=== PATIENT | male | born 1935 | race Caucasian/White ===

== ENCOUNTER 2018-06-26 21:39 | Emergency (ER) | payer OTHER ==
[2018-06-26] MEDS ORDERED: NS 1,000 ML IV ONE (22:18)
[2018-06-26] MEDS ORDERED: ONDANSETRON 4 MG/2 ML VIAL IVP ONE (22:18)
[2018-06-26] MEDS ORDERED: fentaNYL 100 MCG/2 ML INJ IVP ONE (22:18)
[2018-06-26] MEDS ORDERED: FAMOTIDINE 20 MG/NACL 50 ML IV ONE (22:18)
--- NOTE | 2018-06-26 22:23 | EDPHY ---
H & P Stated Complaint: EPIGASTRIC PAIN W/ NAUSEA Time Seen by Provider: 06/26/18 22:02 HPI/ROS: HPI The patient presents with epigastric abdominal pain which has been present for the last several hours which started slowly and has gotten progressively worse. The patient describes it as gas pains. It does not radiate. He was at a play this evening and had to leave because the pain was so severe. It is associated with nausea without any vomiting. The patient says over the last 1 week he has been feeling more run down than usual. He went skiing but tired quickly and normally would not do this. About 3 weeks ago he had an episode of hypotension at rest with a blood pressure of 90/50. He sought care from his primary care doctor and had a battery of lab tests run which he all reports were normal. He had a treadmill stress test performed as well which was negative according to him. He 20 years ago has a history of a gastric ulcer which was treated with medication including antibiotics, he did require blood transfusion at the time. He has had no further episodes and has been on omeprazole for this. His bowel movements are normal he says without any dark or bloody stools. He has not had a fever.. REVIEW OF SYSTEMS 10 systems were reviewed and negative with the exception of the elements mentioned in the history of present illness. PMHx: History of peptic ulcer disease as above, had a normal endoscopy about 5 years ago, hypertension, takes a baby aspirin daily Soc Hx: Here with his , lives independently in [place], likes to ski PHYSICAL General Appearance: Alert, no distress Eyes: Pupils equal and round no pallor or injection ENT, Mouth: Mucous membranes moist Respiratory: There are no retractions, lungs are clear to auscultation Cardiovascular: Regular rate and rhythm Gastrointestinal: Abdomen is moderately distended, most prominently tender in the epigastrium though there is diffuse mild tenderness in all quadrants, bowel sounds present Neurological: A&O, moves all extremities Skin: Warm and dry, no rashes Musculoskeletal: Neck is supple non tender Extremities: symmetrical, full range of motion Psychiatric: Patient is oriented X 3, there is no agitation Source: Patient, Family Exam Limitations: No limitations - Personal History Current Tetanus Diphtheria and Acellular Pertussis (TDAP): Yes - Medical/Surgical History Other PMH: HTN, BLEEDING ULCER, SD - Social History Smoking Status: Never smoked Constitutional: Initial Vital Signs Temperature (C) 36.5 C 06/26/18 21:45 Heart Rate 54 L 06/26/18 21:45 Respiratory Rate 16 06/26/18 21:45 Blood Pressure 198/76 H 06/26/18 21:45 O2 Sat (%) 96 06/26/18 21:45 O2 Delivery Mode Room Air Allergies/Adverse Reactions: No Known Allergies Allergy (Unverified 11/18/11 14:36) Home Medications: Medication Instructions Recorded Aspirin 06/26/18 Losartan Potassium 06/26/18 Prilosec 06/26/18 amLODIPine BESYLATE 06/26/18 Medical Decision Making - Diagnostics Imaging Results: CT abdomen pelvis with IV contrast demonstrates possible micro nodular contour of the liver, enlarged prostate, moderate volume of retained stool, interpreted by direct radiology Differential Diagnosis: 82-year-old relatively healthy man with history of peptic ulcer disease now on omeprazole presents with his for epigastric abdominal pain associated with nausea tonight. He has been feeling unwell for the last 1 month with no clear diagnosis. Here, he is hypertensive, other vital signs are normal. His abdomen is quite distended with epigastric tenderness. Differential diagnosis includes dyspepsia from peptic ulcer disease, perforated viscus, cecal volvulus, bowel obstruction. Patient is given IV fluids and fentanyl 25 mcg. He felt much better after this. Labs were checked and were unremarkable. CT scan showed moderate stool, however no other acute findings to explain his symptoms. He could very well be suffering from constipation leading to abdominal distension and epigastric pain. I have discussed this with him. I have explained also that there is some uncertainty as constipation may not be the cause of his symptoms, however we have ruled out several emergent conditions. I have offered him admission to the hospital as verses discharge to home with laxatives and primary care follow-up. He prefers to go home. I will discharge him with magnesium citrate and instructions for MiraLax. - Data Points Laboratory Results: Laboratory Results 06/26/18 22:08 06/27/18 06/26/18 06/26/18 00:20 22:51 22:45 WBC RBC Hgb POC Hgb 14.6 gm/dL gm/dL (13.7-17.5) Hct POC Hct 43 % % (40-51) MCV MCH MCHC RDW Plt Count MPV Neut % (Auto) Lymph % (Auto) [place] % (Auto) Eos % (Auto) Baso % (Auto) Nucleat RBC Rel Count Absolute Neuts (auto) Absolute Lymphs (auto) Absolute Monos (auto) Absolute Eos (auto) Absolute Basos (auto) Absolute Nucleated RBC Immature Gran % Immature Gran # VBG Lactic Acid 0.9 mmol/L mmol/L (0.7-2.1) POC Sodium 144 mEq/L mEq/L (135-145) POC Potassium 4.1 mEq/L mEq/L (3.3-5.0) POC Chloride 104 mEq/L mEq/L (97-110) POC Total CO2 26 mEq/L mEq/L (22-31) POC BUN 20 mg/dL mg/dL (7-23) POC Creatinine 0.9 mg/dL mg/dL (0.7-1.3) POC Glucose 108 mg/dL H mg/dL (70-100) Total Bilirubin Conjugated Bilirubin Unconjugated Bilirubin AST ALT Alkaline Phosphatase Total Protein Albumin Lipase Urine Color YELLOW Urine Appearance CLEAR Urine pH 6.0 (5.0-7.5) Ur Specific [place] 1.019 (1.002-1.030) Urine Protein NEGATIVE (NEGATIVE) Urine Ketones NEGATIVE (NEGATIVE) Urine Blood NEGATIVE (NEGATIVE) Urine Nitrate NEGATIVE (NEGATIVE) Urine Bilirubin NEGATIVE (NEGATIVE) Urine Urobilinogen NEGATIVE EU EU (0.2-1.0) Ur Leukocyte Esterase NEGATIVE (NEGATIVE) Urine Glucose NEGATIVE (NEGATIVE) 06/26/18 06/26/18 22:08 22:08 WBC 10.54 10^3/uL H 10^3/uL (3.80-9.50) RBC 4.79 10^6/uL 10^6/uL (4.40-6.38) Hgb 15.5 g/dL g/dL (13.7-17.5) POC Hgb Hct 46.7 % % (40.0-51.0) POC Hct MCV 97.5 fL fL (81.5-99.8) MCH 32.4 pg pg (27.9-34.1) MCHC 33.2 g/dL g/dL (32.4-36.7) RDW 13.7 % % (11.5-15.2) Plt Count 240 10^3/uL 10^3/uL (150-400) MPV 10.8 fL fL (8.7-11.7) Neut % (Auto) 74.2 % % (39.3-74.2) Lymph % (Auto) 17.0 % % (15.0-45.0) [place] % (Auto) 7.2 % % (4.5-13.0) Eos % (Auto) 0.9 % % (0.6-7.6) Baso % (Auto) 0.4 % % (0.3-1.7) Nucleat RBC Rel Count 0.0 % % (0.0-0.2) Absolute Neuts (auto) 7.82 10^3/uL H 10^3/uL (1.70-6.50) Absolute Lymphs (auto) 1.79 10^3/uL 10^3/uL (1.00-3.00) Absolute Monos (auto) 0.76 10^3/uL 10^3/uL (0.30-0.80) Absolute Eos (auto) 0.10 10^3/uL 10^3/uL (0.03-0.40) Absolute Basos (auto) 0.04 10^3/uL 10^3/uL (0.02-0.10) Absolute Nucleated RBC 0.00 10^3/uL 10^3/uL (0-0.01) Immature Gran % 0.3 % % (0.0-1.1) Immature Gran # 0.03 10^3/uL 10^3/uL (0.00-0.10) VBG Lactic Acid POC Sodium POC Potassium POC Chloride POC Total CO2 POC BUN POC Creatinine POC Glucose Total Bilirubin 0.4 mg/dL mg/dL (0.1-1.4) Conjugated Bilirubin 0.2 mg/dL mg/dL (0.0-0.5) Unconjugated Bilirubin 0.2 mg/dL mg/dL (0.0-1.1) AST 30 IU/L IU/L (17-59) ALT 35 IU/L IU/L (21-72) Alkaline Phosphatase 117 IU/L IU/L (38-126) Total Protein 7.5 g/dL g/dL (6.3-8.2) Albumin 4.6 g/dL g/dL (3.5-5.0) Lipase 126 IU/L IU/L (23-300) Urine Color Urine Appearance Urine pH Ur Specific [place] Urine Protein Urine Ketones Urine Blood Urine Nitrate Urine Bilirubin Urine Urobilinogen Ur Leukocyte Esterase Urine Glucose Medications Given: Discontinued Medications Fentanyl (Sublimaze) 25 mcg IVP EDNOW ONE Stop: 06/26/18 22:19 Last Admin: 06/26/18 22:30 Dose: 25 mcg Sodium Chloride (Ns) 1,000 mls @ 0 mls/hr IV EDNOW ONE; Wide Open PRN Reason: Protocol Stop: 06/26/18 22:19 Last Admin: 06/26/18 22:30 Dose: 1,000 mls Famotidine/Sodium Chloride (Pepcid 20 Mg (Premix)) 50 mls @ 200 mls/hr IV EDNOW ONE Stop: 06/26/18 22:32 Last Admin: 06/26/18 22:30 Dose: 50 mls Magnesium Citrate (Magnesium Citrate) 300 ml PO ONCE ONE Stop: 06/27/18 01:02 Last Admin: 06/27/18 01:25 Dose: 1 btl Ondansetron HCl (Zofran) 4 mg IVP EDNOW ONE Stop: 06/26/18 22:19 Last Admin: 06/26/18 22:30 Dose: 4 mg Point of Care Test Results: Chemistry 06/26/18 22:51 POC Sodium 144 mEq/L mEq/L (135-145) POC Potassium 4.1 mEq/L mEq/L (3.3-5.0) POC Chloride 104 mEq/L mEq/L (97-110) POC Total CO2 26 mEq/L mEq/L (22-31) POC BUN 20 mg/dL mg/dL (7-23) POC Creatinine 0.9 mg/dL mg/dL (0.7-1.3) POC Glucose 108 mg/dL H mg/dL (70-100) ISTAT H&H 06/26/18 22:51 POC Hgb 14.6 gm/dL gm/dL (13.7-17.5) POC Hct 43 % % (40-51) Departure - Departure Disposition: Home, Routine, Self-Care Clinical Impression: Epigastric abdominal pain Constipation Qualifiers: Constipation type: unspecified constipation type Qualified Code(s): K59.00 - Constipation, unspecified Condition: Good Instructions: Magnesium Citrate (By mouth), Constipation (ED) Additional Instructions: Your CT scan today showed that you have constipation. This could be causing your symptoms of pain. Because of this, I recommend you take magnesium citrate that we are giving you from the ER tomorrow. If this results in a bowel movement, then I would begin taking MiraLax 17 mg once daily for the next 1 week to see if this helps you to feel better. If you're unable to have a bowel movement with this, then I would recommend trying a Fleet's enema at home. Either way, I would like for you to follow up with your primary care doctor early next week. You should return to the ER if your worse in any way. Referrals: Ketan Moscoso MD [Primary Care Provider] - As per Instructions
[2018-06-26 22:29] LABS: PLATELET COUNT 240 10^3/uL (150-400)
[2018-06-26] MEDS ORDERED: IOHEXOL 350mgI/ML (OMNIPAQUE) 150 ML BTL IV ONE (22:31)
[2018-06-27] MEDS ORDERED: MAGNESIUM CITRATE 300 ML BOTTLE PO ONE (01:01)
[2018-06-27 01:26] VITALS: BP 140/87
== END 2018-06-27 01:33 | disposition home or self-care (01) ==
DX: R10.13 Epigastric pain (principal); K59.00 Constipation, unspecified; E27.9 Disorder of adrenal gland, unspecified; I25.10 Atherosclerotic heart disease of native coronary artery without angina pectoris; N40.0 Benign prostatic hyperplasia without lower urinary tract symptoms
CPT/HCPCS: 74177; 96374; 96375; 99285; J2405; J3010; Q9967; 82435-PO; 82565-PO; 82947-PO; 84132-PO; 84295-PO; 84520-PO; 85014-ER